=== PATIENT | male | born 1970 | race Caucasian/White ===

== ENCOUNTER 2023-01-13 09:29 | Emergency (ER) | payer MEDICAID ==
[~2023-01-13] VITALS: Ht 167.6 cm; Wt 66.0 kg
[2023-01-13 10:31] VITALS: BP 106/80; PULSE 79; RESP 20; TEMP 97.9; O2SAT 96
[2023-01-13] MEDS ORDERED: amoxicillin 250mg capsule PO ONE (10:55)
[2023-01-13] MEDS ORDERED: ibuprofen tablet 400 MG TABLET PO ONE (10:55)
== END 2023-01-13 11:33 | disposition home or self-care (01) ==
LOC: ER 09:29
DX: K04.7 Periapical abscess without sinus (principal); R22.0 Localized swelling, mass and lump, head
CPT/HCPCS: 99283